=== PATIENT | male | born 1980 | race Caucasian/White ===

== ENCOUNTER 2016-11-10 09:19 | Emergency (ER) | payer SELFPAY ==
[2016-11-10 09:30] VITALS: BP 146/83
--- NOTE | 2016-11-10 10:24 | XRAY Preliminary Report ---
Exam: XR Ankle 3 View RT IMPRESSION: 1. Obliquely oriented fracture medial malleolus with 1 cm displacement. No other fractures. [facility] SITE ID: [id number]
--- NOTE | 2016-11-10 10:29 | XRAY Report ---
EXAM: RIGHT ANKLE RADIOGRAPHY EXAM DATE: 11/10/2016 09:47 AM. CLINICAL HISTORY: Ankle pain. Injury. COMPARISON: None. TECHNIQUE: 3 views. FINDINGS: Bones: Obliquely oriented fracture through the medial malleolus with 1 cm displacement inferiorly. Lateral and posterior malleoli appear unremarkable. Joints: Normal. No effusion. No subluxations. The ankle mortise is normally aligned. Soft Tissues: Significance soft tissue swelling seen at the medial malleolus. IMPRESSION: Obliquely oriented fracture medial malleolus with 1 cm displacement. No other fractures. [facility] Referring Provider Line: [phone] SITE ID: [id number]
[2016-11-10] MEDS ORDERED: oxyCOD/ACETAMIN 5 MG/325 MG TABLET PO STA (12:05)
[2016-11-10] MEDS ORDERED: oxyCOD/ACETAMIN 5 MG/325 MG TABLET PO ONE (12:16)
--- NOTE | 2016-11-10 12:50 | ED Physician Documentation ---
History of Present Illness - Stated complaint Stated Complaint: R FOOT INJ - Chief complaint Chief Complaint: Ext Problem - Additonal information Additional information: hx from pt 36 m jumped up to grab a bar and missed and landed hard and twisted his ankle pain and swelling medial Review of Systems Musculoskeletal: reports: Pain with weight bearing PD PAST MEDICAL HISTORY - Past Medical History Past Medical History: No - Past Surgical History Past Surgical History: No - Present Medications Home Medications: Ambulatory Orders Medication Instructions Recorded Confirmed Ibuprofen [Motrin] 400 mg PO Q6H PRN #30 tablet 11/10/16 Oxycodone HCl/Acetaminophen 1 each PO Q6HR PRN #10 tablet 11/10/16 [Percocet 5-325 mg Tablet] - Allergies Allergies/Adverse Reactions: Allergies Allergy/AdvReac Type Severity Reaction Status Date / Time No Known Drug Allergies Allergy Verified 11/10/16 09:29 - Social History Does the pt smoke?: No Smoking Status: Never smoker PD ED PE NORMAL - Vitals Vital signs reviewed: Yes - Cardiac Cardiac: RRR - Respiratory Respiratory: No respiratory distress, Clear bilaterally - Extremities Extremities: Other (swelling and TTP medial mall, MSV intact, no proximal tib fib pain) - Neuro Neuro: Alert and oriented X 3, No motor deficit, No sensory deficit Results - Vitals Vitals: Vital Signs - 24 hr 11/10/16 09:27 Temperature 37.1 C Heart Rate 95 Respiratory 18 Rate Blood Pressure 146/83 H O2 Saturation 98 Oxygen O2 Source Room air - Rads (name of study) ankle Radiology: See rad report Procedures - Splint (location) ankle Splint applied by: Tech Type of splint: Fiberglass, Short leg, Posterior, Stirrup, Other (checked by me) Other: Patient tolerated well, No complications, Neurovascular intact, Crutches provided Departure - Departure Disposition: 01 Home, Self Care Clinical Impression: Ankle fracture, right Qualifiers: Encounter type: initial encounter Fracture type: closed Qualified Code(s): S82.891A - Other fracture of right lower leg, initial encounter for closed fracture Condition: Good Instructions: ED Fx Ankle General, ED Splint Care Fiberglass, ED Crutch Walking Follow-Up: [facility] [Provider Group] (call to schedule Sunday - follow up is very important - you may need surgery) Prescriptions: Oxycodone HCl/Acetaminophen [Percocet 5-325 mg Tablet] 1 each PO Q6HR PRN #10 tablet PRN Reason: Severe Pain Ibuprofen [Motrin] 400 mg PO Q6H PRN #30 tablet PRN Reason: Pain Comments: Please follow up with your PMD about your blood pressure - it was high today Forms: Activity restrictions
== END 2016-11-10 13:17 | disposition home or self-care (01) ==
LOC: ED 09:19
DX: S82.51XA Displaced fracture of medial malleolus of right tibia, initial encounter for closed fracture (principal); X50.0XXA Overexertion from strenuous movement or load, initial encounter; Y93.39 Activity, other involving climbing, rappelling and jumping off
CPT/HCPCS: 29515; 73610; 99282; 99283; A9270

== ENCOUNTER 2016-11-21 08:58 | Day surgery (SDC) | payer SELFPAY ==
[~2016-11-21 08:58] MED LIST: ceFAZolin 2 GM/50 ML 50 ML IV ONE
[2016-11-21] MEDS ORDERED: LACTATED RINGERS 1,000 ML IV ONE ×2 (09:15→13:12)
[2016-11-21] MEDS ORDERED: fentaNYL 100 MCG/2 ML VIAL IVP ONE (11:40)
[2016-11-21] MEDS ORDERED: MIDAZOLAM 2 MG/2 ML VIAL IVP ONE (11:40)
[2016-11-21] MEDS ORDERED: PROPOFOL 200 MG/20 ML VIAL IVP ONE (11:40)
[2016-11-21] MEDS ORDERED: DEXAMETHASONE 4 MG/ML VIAL IVP ONE (11:40)
[2016-11-21] MEDS ORDERED: LIDOCAINE-PF 2% 10 ML AMP SUBQ ONE (11:40)
[2016-11-21] MEDS ORDERED: KETOROLAC 30 MG/ML VIAL IVP ONE (11:40)
[2016-11-21] MEDS ORDERED: ONDANSETRON 4 MG/2 ML VIAL IVP ONE (11:40)
[2016-11-21] MEDS ORDERED: LIDOCAINE 1% 50 ML MDV SUBQ ONE (12:05)
[2016-11-21] MEDS ORDERED: BUPIVACAINE 0.25%-EPI 1:200000 PF 30 ML VIAL SUBQ ONE (12:05)
[2016-11-21] MEDS: HYDROmorphone 1 MG/ML SYRINGE ONE ×2 (12:48→12:54)
[2016-11-21] MEDS ORDERED: HYDROmorphone 1 MG/ML SYRINGE ONE (13:00)
[2016-11-21 14:42] VITALS: BP 122/78
--- NOTE | 2016-11-22 10:37 | OPERATIVE REPORT ---
DATE OF SURGERY: 11/21/2016 00:00:00 PREOPERATIVE DIAGNOSIS: Displaced right medial malleolus fracture. POSTOPERATIVE DIAGNOSIS: Displaced right medial malleolus fracture. NAME OF PROCEDURE: Open reduction internal fixation of right displaced medial malleolus fracture. SURGEON: Komal Lagunas MD ANESTHESIA: General. INDICATIONS FOR SURGERY: The patient is a 36-year-old male who fractured his right ankle on the 5th o november when he jumped down and awkwardly rolled his ankle. He was seen in the office and found to have a displaced medial malleolus fracture and surgery was recommended, with operative open reduction int ernal fixation. FINDINGS AT SURGERY: The patient's ankle did show instability of the fractured fragment and displacem ent. At open surgery, there was tearing of the medial periosteum around the fracture site, hematoma i n the area, and slight blistering of skin. DESCRIPTION OF OPERATIVE PROCEDURE: The patient was taken to the operating room, given a general anes thetic and IV antibiotics. His leg was sterilely prepped and draped in standard fashion with a tourni quet on the upper thigh. Under tourniquet control and after appropriate time-out, the patient's limb was approached after prep and drape with a curved incision around the medial malleolus, which allowed direct exposure of the fracture site. Hematoma was evacuated. Periosteum was elevated around the mar gins of the fracture to allow anatomic episcopal with a clamp. With this held in place, screw fixat ion was obtained with a lag screw 4 mm in length getting excellent purchase and reduction. A second c ancellous screw was added for stability. The fixation gained on C-arm images was excellent, anatomic, and in good position. The wound was flushed, the ankle was stressed and the syndesmosis and mortise were stable. Closure was with interrupted Vicryl in the periosteum and soft tissues followed by inter rupted Prolene in the skin. Sterile dressings and a well-padded splint were applied, and the patient was then awakened and taken to recovery room in stable condition. ESTIMATED BLOOD LOSS: Minimal. COMPLICATIONS: None. SPONGE AND NEEDLE COUNTS: Correct. JOB #: [id number] EXT JOB #:[id number]
== END 2016-11-21 08:59 | disposition home or self-care (01) ==
LOC: SDS 08:58
PROVIDERS: ATTEND Orthopaedic Surgery
PROC: 0QSG04Z Reposition Right Tibia with Internal Fixation Device, Open Approach (ICD-10-PCS; principal; 2016-11-21 10:45)
DX: S82.51XA Displaced fracture of medial malleolus of right tibia, initial encounter for closed fracture (principal); X50.1XXA Overexertion from prolonged static or awkward postures, initial encounter; Y93.39 Activity, other involving climbing, rappelling and jumping off
CPT/HCPCS: 27766; J0690; J1170; J7120